=== PATIENT | female | born 1995 | race Caucasian/White ===

== ENCOUNTER 2017-10-23 14:35 | Emergency (ER) | payer MEDICAID ==
[~2017-10-23] VITALS: Ht 165.1 cm; Wt 57.6 kg
[2017-10-23 14:47] VITALS: BP 152/107
--- NOTE | 2017-10-23 15:00 | ER.PDOC ---
General Chief Complaint: Chest Pain-Non Cardiac Nature Stated Complaint: CP Time seen by MD: 14:57 Source: patient Exam Limitations: no limitations History of Present Illness Initial Comments CP started last night, is midsternal, no radiation, nausea, no vomiting. Hurts when taking deep breaths Timing/Duration: 24 hours Severity/Quality: mild Radiation: no radiation Activities at Onset: none Prior CP/Workup: No Prior Chest Pain Modifying Factors: breathing Nitro Today/Relief: No Nitro Taken Today Aspirin Today: No Aspirin Today Associated Symptoms: abdominal pain Allergies: Coded Allergies: No Known Allergies (Unverified , 10/23/17) Past Medical History Medical History: no pertinent history Surgical History: no surgical history LMP (females 10-50): 1 month Social History Smoking: non-smoker Alcohol Use: occassionally Drug Use: none Constitutional: no symptoms reported EENTM: no symptoms reported Respiratory: no symptoms reported Cardiovascular: see HPI Gastrointestinal: see HPI Genitourinary: no symptoms reported Musculoskeletal: no symptoms reported Skin: no symptoms reported Psychiatric/Neurological: no symptoms reported Endocrine: no symptoms reported Hematologic/Lymphatic: no symptoms reported Physical Exam General Appearance: No Apparent Distress, WD/WN HEENT: PERRL/EOMI, Normal ENT Inspection, TMs Normal, Pharynx Normal Neck: Non-Tender, Full Range of Motion, Supple, Normal Inspection Respiratory: lungs clear, normal breath sounds, other (tender chest to palpation) Cardiovascular: Normal Peripheral Pulses, Regular Rate, Rhythm, No Edema, No Gallop, No JVD, No Murmur Gastrointestinal: Normal Bowel Sounds, No Organomegaly, No Pulsatile Mass, Soft , Tenderness (epigastrium) Extremities: Normal Range of Motion, Non-Tender, Normal Inspection, No Pedal Edema, No Calf Tenderness, Normal Capillary Refill 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, No Motor/Sensory Deficits, Alert, Normal Mood/Affect, Oriented x 3 Skin: Normal Color, Warm/Dry Lymphatic: No Adenopathy Progress Progress Resolved Departure Time of Disposition: 15:48 Disposition: 01 HOME, SELF-CARE Impression: Primary Impression: Chest pain Additional Impressions: Tenderness of chest wall Gastroesophageal reflux disease Condition: Stable Patient Instructions: Costochondritis, [id number], Diet for Gastroesophageal Reflux Disease, Adult, [id number], Gastroesophageal Reflux Disease, Adult, [id number] Referrals: PCP,UNKNOWN (PCP) PRIMARY CARE PROVIDER Duration or Time Spent with Pa: 20 Problem Qualifiers JACLYN BISWAS MD Oct 23, 2017 14:59
[2017-10-23] MEDS ORDERED: LIDOCAINE VISCOUS MM STA (15:04)
[2017-10-23] MEDS ORDERED: MYLANTA PO STA (15:04)
[2017-10-23] MEDS ORDERED: LIDOCAINE VISCOUS ONE (15:21)
[2017-10-23] MEDS ORDERED: BENTYL LIQUID ONE (15:21)
[2017-10-23] MEDS ORDERED: MYLANTA ONE (15:22)
[2017-10-23] MEDS ORDERED: BENTYL LIQUID PO PRN (15:30)
--- NOTE | 2017-10-23 15:43 | PCM.EKG ---
[facility] Test Date: 2017-10-23 Test Time: 14:50:38 Pat Name: WAYNE PATEL Department: Patient ID: [id number] Room: Gender: F Loan Collector: : 1995 Requested By: JACLYN SEGURA Order Number: [id number] Reading MD: Jaclyn Segura Measurements Intervals [place] Rate: 64 P: 74 MS: 146 QRS: 70 QRSD: 92 T: 50 QT: 438 QTc: 451 Interpretive Statements Normal sinus rhythm Normal ECG No previous ECG available for comparison Electronically Signed On 10-23-2017 23:22:22 CDT by Jaclyn Segura Please click the below link to view image of tracing.
[2017-10-23 16:00] VITALS: BP 152/107
== END 2017-10-23 15:57 | disposition home or self-care (01) ==
LOC: ER 14:35
DX: R07.89 Other chest pain (principal); K21.9 Gastro-esophageal reflux disease without esophagitis
CPT/HCPCS: 93005; 99283; J3490

== ENCOUNTER 2019-04-02 12:00 | Emergency (ER) | payer MEDICAID, OTHER ==
[~2019-04-02] VITALS: Ht 165.1 cm; Wt 61.2 kg
[2019-04-02 12:17] VITALS: BP 133/97
[2019-04-02] MEDS ORDERED: TORADOL ONE (13:02)
[2019-04-02] MEDS ORDERED: TORADOL IV STA (13:02)
--- NOTE | 2019-04-02 13:05 | ER.PDOC ---
General Chief Complaint: General Complaint Stated Complaint: HIGH PB TRAVEL OUT OF US: No Time seen by MD: 13:04 Source: patient Exam Limitations: no limitations History of Present Illness Initial Comments Elevated blood pressure and headache for 4 days. Patient is 2 weeks post . No edema or weight gain. Severity: moderate Associated Symptoms: headaches Allergies: Coded Allergies: No Known Allergies (Unverified , 10/23/17) Past Medical History Medical History: hypertension Surgical History: no surgical history Social History Alcohol Use: none Drug Use: none Review of Systems Constitutional: no symptoms reported EENTM: no symptoms reported Respiratory: no symptoms reported Cardiovascular: no symptoms reported Gastrointestinal: no symptoms reported All Other Systems: Reviewed and Negative Physical Exam General Appearance: No Apparent Distress, WD/WN Neck: Non-Tender, Full Range of Motion, Supple, Normal Inspection Respiratory: chest non-tender, lungs clear, normal breath sounds, no respiratory distress, no accessory muscle use CVS: reg rate & rhythm, no murmur, no gallop, pulses nml, nml capillary refill Gastrointestinal: Normal Bowel Sounds, No Organomegaly, No Pulsatile Mass, Non Tender Back: Normal Inspection Extremities: Normal Range of Motion, Non-Tender, Normal Inspection, No Pedal Edema 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 (04/02/19 13:00) Urinalysis (04/02/19 13:00) Ct Head Wo Contrast (04/02/19 13:00) Ketorolac Tromethamine (Toradol) (04/02/19 13:02) Ketorolac Tromethamine (Toradol) (04/02/19 13:02) Urine Culture (04/02/19 12:40) Vital Signs Date Time Temp Pulse Resp B/P (MAP) Pulse Ox O2 Delivery O2 Flow Rate FiO2 04/02/19 12:17 98.0 83 18 04/02/19 12:17 98.0 83 18 133/97 (109) 98 Room Air 04/02/19 12:08 98.0 86 18 98 Administered Medications Medications (Trade) Dose Ordered Sig/Karla Route PRN Reason Start Time Stop Time Status Last Admin Dose Admin Ketorolac Tromethamine (Toradol) 30 mg STAT STAT IV 04/02/19 13:02 04/02/19 13:04 DC 04/02/19 13:12 30 MG Laboratory Tests Test 04/02/19 12:40 04/02/19 13:35 Urine Collection Type UNKNOWN Urine Color YELLOW (YELLOW) Urine Appearance CLEAR (CLEAR) Urine Bilirubin NEGATIVE MG/DL (NEGATIVE) Urine Ketones NEGATIVE (NEGATIVE) Urine Specific [place] 1.005 (1.005-1.035) Urine pH 6.5 (5.0-6.0) Urine Protein NEGATIVE (NEGATIVE) Urine Urobilinogen NORMAL (NEGATIVE) Urine Nitrate NEGATIVE (NEGATIVE) Urine Leukocyte Esterase 100/ul 1+ (NEGATIVE) Urine Blood 250 4+ (NEGATIVE) H Urine RBC TNTC RBC/HPF (NONE SEEN) H Urine WBC 2-5 WBC/HPF (0-2) Urine Squamous Epithelial Cells RARE #/HPF (FEW) Urine Bacteria RARE (NONE SEEN) Urine Glucose NORMAL (NEGATIVE) White Blood Count 6.1 10^3/uL (4.5-11.0) Red Blood Count 5.53 10^6/uL (4.00-5.20) H Hemoglobin 14.4 g/dL (12.0-15.0) Hematocrit 44.7 % (36.0-46.0) Mean Corpuscular Volume 80.8 fL (78-100) Mean Corpuscular Hemoglobin 26.0 pg (26-34) Mean Corpuscular Hemoglobin Concent 32.2 g/dL (33-37) L Red Cell Distribution Width 13.7 % (11.5-14.5) Platelet Count 339 10^3/uL (150-400) Mean Platelet Volume 9.7 fL (7.8-11.0) Neutrophils (%) (Auto) 45.6 % (41.0-85.0) Lymphocytes (%) (Auto) 40.4 % (24.0-44.0) Monocytes (%) (Auto) 7.3 % (5.0-12.0) Neutrophils # (Auto) 2.8 10^3/uL (1.8-7.7) Lymphocytes # (Auto) 2.5 10^3/uL (1.0-4.8) Monocytes # (Auto) 0.4 10^3/uL (0.3-0.8) Absolute Immature Granulocyte (auto 0.01 10^3 u/L (0-2) Immature Granulocytes % 0.20 % (0.00-0.50) Eosinophils % 5.8 % (0.0-5.0) H Basophils % 0.7 % (0.0-0.2) H Basophils # 0.0 10^3/uL (0.0-0.1) Eosinophil Count 0.4 10^3/uL (0.0-0.2) H Prothrombin Time 10.8 SEC (9.4-11.5) Prothrombin Time INR (Non-Therap) 1.0 Activated Partial Thromboplast Time 26.1 SEC (24.67-30.72) Sodium Level 140 mmol/L (132-145) Potassium Level 4.1 mmol/L (3.6-5.2) Chloride Level 105.0 mmol/L (96-109) Carbon Dioxide Level 27.4 mmol/L (20.0-32) Anion Gap 11.7 Blood Urea Nitrogen 12 mg/dL (7-18) Creatinine 0.85 mg/dL (0.59-1.40) Estimated GFR () 99.4 (>/=60) BUN/Creatinine Ratio 14.0 Glucose Level 81 mg/dL (70-110) Calcium Level 9.1 mg/dL (8.4-10.5) Total Bilirubin 0.4 mg/dL (0.2-1.0) Aspartate Amino Transferase (AST) 14 U/L (0-35) Alanine Aminotransferase (ALT) 15 U/L (12-78) Alkaline Phosphatase 101 U/L (50-136) Total Creatine Kinase 64 U/L (26-192) Total Protein 7.3 g/dL (6.4-8.2) Albumin 4.0 g/dL (3.4-5.0) Globulin 3.3 Progress Progress Spoke with Dr. Sanches at [facility] and patient does not meet criteria for pre-eclampsia. Patient's headache resolved and B.P 123/88 No proteins in urine. EKG/XRAY/CT/US CT Comments: Normal Course Sepsis Screening Results: Posi: POSITIVE SEPSIS RISK Duration or Total Time Spent w: 20 Vitals & review Data Vital Sign - Last 24 Hours 04/02/19 04/02/19 04/02/19 12:08 12:17 12:17 Temp 98.0 98.0 98.0 Pulse 86 83 83 Resp 18 18 18 B/P (MAP) 133/97 (109) Pulse Ox 98 98 O2 Delivery Room Air Laboratory Tests Test 04/02/19 12:40 04/02/19 13:35 Urine Collection Type UNKNOWN Urine Color YELLOW Urine Appearance CLEAR Urine Bilirubin NEGATIVE MG/DL Urine Ketones NEGATIVE Urine Specific [place] 1.005 Urine pH 6.5 Urine Protein NEGATIVE Urine Urobilinogen NORMAL Urine Nitrate NEGATIVE Urine Leukocyte Esterase 100/ul 1+ Urine Blood 250 4+ Urine RBC TNTC RBC/HPF Urine WBC 2-5 WBC/HPF Urine Squamous Epithelial Cells RARE #/HPF Urine Bacteria RARE Urine Glucose NORMAL White Blood Count 6.1 10^3/uL Red Blood Count 5.53 10^6/uL Hemoglobin 14.4 g/dL Hematocrit 44.7 % Mean Corpuscular Volume 80.8 fL Mean Corpuscular Hemoglobin 26.0 pg Mean Corpuscular Hemoglobin Concent 32.2 g/dL Red Cell Distribution Width 13.7 % Platelet Count 339 10^3/uL Mean Platelet Volume 9.7 fL Neutrophils (%) (Auto) 45.6 % Lymphocytes (%) (Auto) 40.4 % Monocytes (%) (Auto) 7.3 % Neutrophils # (Auto) 2.8 10^3/uL Lymphocytes # (Auto) 2.5 10^3/uL Monocytes # (Auto) 0.4 10^3/uL Absolute Immature Granulocyte (auto 0.01 10^3 u/L Immature Granulocytes % 0.20 % Eosinophils % 5.8 % Basophils % 0.7 % Basophils # 0.0 10^3/uL Eosinophil Count 0.4 10^3/uL Prothrombin Time 10.8 SEC Prothrombin Time INR (Non-Therap) 1.0 Activated Partial Thromboplast Time 26.1 SEC Sodium Level 140 mmol/L Potassium Level 4.1 mmol/L Chloride Level 105.0 mmol/L Carbon Dioxide Level 27.4 mmol/L Anion Gap 11.7 Blood Urea Nitrogen 12 mg/dL Creatinine 0.85 mg/dL Estimated GFR () 99.4 BUN/Creatinine Ratio 14.0 Glucose Level 81 mg/dL Calcium Level 9.1 mg/dL Total Bilirubin 0.4 mg/dL Aspartate Amino Transf (AST/SGOT) 14 U/L Alanine Aminotransferase (ALT/SGPT) 15 U/L Alkaline Phosphatase 101 U/L Total Creatine Kinase 64 U/L Total Protein 7.3 g/dL Albumin 4.0 g/dL Globulin 3.3 O2 Sat by Pulse Oximetry: 98 Departure Time of Disposition: 14:22 Disposition: 01 HOME, SELF-CARE Impression: Primary Impression: Elevated blood pressure reading Additional Impression: Headache Condition: Improved Referrals: PCP,UNKNOWN (PCP) PRIMARY CARE PROVIDER Additional Instructions: F/U with your OB Doctor in 1-2 days Return to ED if worsening symptoms or concerns. Duration or Time Spent with Pa: 45 mins Problem Qualifiers Additional Impression: Headache Headache type: unspecified Headache chronicity pattern: acute headache Intractability: intractable Qualified Codes: R51 - Headache ISREAL,DARSHANA Fish MD Apr 02, 2019 13:05
[2019-04-02 13:06] LABS: APPEARANCE,URINE CLEAR (CLEAR); BILIRUBIN,URINE NEGATIVE (NEGATIVE); UA COLOR YELLOW (YELLOW); UROBILINOGEN,URINE NORMAL (NEGATIVE)
--- NOTE | 2019-04-02 13:07 | NUR ---
TO CAT SCAN VIA W/C
--- NOTE | 2019-04-02 13:12 | NUR ---
RETURNED FROM CAT SCAN
--- NOTE | 2019-04-02 13:17 | DIREP ---
PROCEDURE:CT HEAD WITHOUT CONTRAST TECHNIQUE:Axial cuts were obtained through the head, without intravenous contrast material. The images were viewed at brain and bone settings. COMPARISON:None. INDICATIONS:Headache FINDINGS: VENTRICLES:Normal. CEREBRUM:There is no CT evidence of mass, hemorrhage, or acute infarct. CEREBELLUM:Normal. BRAINSTEM:Normal. SKULL:4 mm calcified nodule deep to inner table of the right frontal bone, osteoma versus meningioma. SINUSES:Normal. OTHER:Negative. CONCLUSION:Normal examination. Dictated by: Babs Sanchez III, MD on 04/02/2019 at 01:14 PM
--- NOTE | 2019-04-02 13:28 | NUR ---
LAB HERE TO DRAW BLOOD
[2019-04-02 13:43] LABS: BASOPHIL % 0.7 % (0.0-0.2); EOSINOPHIL # 0.4 10^3/uL (0.0-0.2); EOSINOPHIL % 5.8 % (0.0-5.0); LYMPHOCYTES # 2.5 10^3/uL (1.0-4.8); LYMPHOCYTES % 40.4 % (24.0-44.0); MONOCYTES # 0.4 10^3/uL (0.3-0.8); MONOCYTES % 7.3 % (5.0-12.0); NEUTROPHIL # 2.8 10^3/uL (1.8-7.7); NEUTROPHILS % 45.6 % (41.0-85.0); RED CELL DISTRIBUTION WIDTH 13.7 % (11.5-14.5)
[2019-04-02 13:59] LABS: CALCIUM 9.1 mg/dL (8.4-10.5); CARBON DIOXIDE 27.4 mmol/L (20.0-32)
--- NOTE | 2019-04-02 14:13 | NUR ---
[facility]MICAL HANDLER DOCTOR ISREAL ON THE PHONE WITH DOCTOR JIMMY AT THIS TIME DISCUSSING PATIENT TREATMENT
[2019-04-02 14:33] VITALS: BP 128/86
== END 2019-04-02 14:34 | disposition home or self-care (01) ==
LOC: ER 12:00
DX: R51 Headache (principal); I10 Essential (primary) hypertension; R82.90 Unspecified abnormal findings in urine; R79.1 Abnormal coagulation profile; Z79.1 Long term (current) use of non-steroidal anti-inflammatories (NSAID)
CPT/HCPCS: 36415; 70450; 80053; 81000; 82550; 85025; 85610; 85730; 87086; 96374; 99285; J1885